=== PATIENT | female | born 1950 | race Caucasian/White ===

== ENCOUNTER → 2020-07-23 12:06 | Outpatient (CLI) | payer OTHER, SELFPAY ==
--- NOTE | ~2020-07-23 | DEXA_ITS ---
Bone Density Report Name: Loren Nevarez Age: 70 Sex: Female Ethnicity: White Date of : 1950 Indication: postmenopausal; screening for osteoporosis; height loss; hysterectomy; Referring Provider: ELLYN ANTHONY Study: Bone densitometry was performed. Exam Date: July 23, 2020 Accession number: [id number] Bone Density: Region BMD T-score Z-score Classification AP Spine (L1-L4) 0.987 -0.5 1.5 Normal Femoral Neck (Left) 0.765 -0.8 0.9 Normal Total Hip (Left) 0.910 -0.3 1.2 Normal Femoral Neck (Right) 0.788 -0.6 1.2 Normal Total Hip (Right) 0.925 -0.1 1.3 Normal Total Hip Mean 0.918 -0.2 1.3 Normal World Health Organization criteria for BMD impression classify patients as: Normal (T-score at or above -1.0), Osteopenia (T-score between -1.0 and -2.5), or Osteoporosis (T-score at or below -2.5). 10-year Fracture Risk: FRAX not reported because: All T-scores for Spine Total, Hip Total, Femoral Neck at or above -1.0 Clinical Information Provided by Patient: Has the following medical conditions: Hysterectomy Patient maximum height was 62.5 Menopause Age: 30 No regular weight bearing exercise Does not regularly consume dairy products Drinks caffeinated beverages Onset of menses at age 15 Number of children 3 Impression: The patient has normal bone mass. Discussion: BONE DENSITY IS ABOVE THE MINIMUM DESIRABLE LEVEL AT ALL SKELETAL SITES TESTED. This patient?s bone mineral density is above the minimum desirable level (T-score -1.0 or better) at all sites measured. The patient should follow a healthful lifestyle (good nutrition with adequate calcium and vitamin D, and appropriate weight-bearing exercise). Follow-Up: Consider repeating this study in 5 years or sooner if there is some new clinical indication. Reported by: RYAN on 07/23/2020 12:29:00 PM. Reviewed, dictated and finalized at location AGladys MACIAS
== END ==
PROVIDERS: PCP Family Medicine; Visit Provider Physician Assistant
DX: N95.8 Other specified menopausal and perimenopausal disorders (principal); Z78.0 Asymptomatic menopausal state
CPT/HCPCS: 77080

== ENCOUNTER → 2020-09-08 12:42 | Outpatient (CLI) | payer OTHER, SELFPAY ==
--- NOTE | ~2020-09-08 | MM_ITS ---
EXAMINATION: MM screening wing BI w gavin HISTORY: Screening TECHNIQUE: Craniocaudal and mediolateral oblique 3-D tomosynthesis images were obtained and synthetic 2-D images were generated. CAD analysis was submitted and interpreted. COMPARISON: 10/13/2016 BREAST PARENCHYMAL COMPOSITION: There are scattered areas of fibroglandular density. FINDINGS: There is no evidence of suspicious mass, calcification, or architectural distortion to sugg est malignancy in either breast. There has been no suspicious interval change. IMPRESSION: 1. No mammographic evidence of malignancy. 2. Recommend routine screening mammography in one year. BI-RADS Category 1: Negative Reviewed, dictated and finalized at location A.
== END ==
PROVIDERS: PCP Physician Assistant; Visit Provider Physician Assistant
DX: Z12.31 Encounter for screening mammogram for malignant neoplasm of breast (principal)
CPT/HCPCS: 77063; 77067

== ENCOUNTER → 2020-11-20 11:38 | Outpatient (CLI) | payer OTHER, SELFPAY ==
--- NOTE | ~2020-11-20 | US_ITS ---
EXAMINATION: US abdomen complete DATE: 11/20/2020 11:59 INDICATION: Right upper quadrant and epigastric abdominal pain. TECHNIQUE: Multiple grayscale and Doppler ultrasound images of the abdomen were obtained. COMPARISON: None FINDINGS: Inferior vena cava is normal. Abdominal aorta is normal in caliber and demonstrates atheros clerosis. The visualized portions of the head and body of the pancreas are normal. There is diffuse h epatic steatosis. No liver surface nodularity. There is normal flow in main portal vein. The gallblad sveta is normal in size and contains gallstones. No gallbladder wall thickening or sonographic Guajardo s ign. The common duct is normal and measures 6 mm. The kidneys are normal in size. The spleen is kala l in size. IMPRESSION: 1. Cholelithiasis. No evidence of acute cholecystitis. 2. Diffuse hepatic steatosis. Reviewed, dictated and finalized at location A.
== END ==
PROVIDERS: PCP Family Medicine; Visit Provider Nurse Practitioner Family
DX: K80.20 Calculus of gallbladder without cholecystitis without obstruction (principal); K76.0 Fatty (change of) liver, not elsewhere classified
CPT/HCPCS: 76700

== ENCOUNTER 2022-08-11 15:00 | Outpatient (CLI) | payer OTHER, SELFPAY ==
--- NOTE | ~2022-08-11 | MM_ITS ---
EXAMINATION: MM screening wing BI w gavin HISTORY: Screening mammogram TECHNIQUE: Craniocaudal and mediolateral oblique 3-D tomosynthesis images were obtained and synthetic 2-D images were generated. CAD analysis was submitted and interpreted. COMPARISON: 09/08/2020, 10/13/2016, 05/18/2014 bilateral screening mammogram examinations BREAST PARENCHYMAL COMPOSITION: There are scattered areas of fibroglandular density. FINDINGS: There is no evidence of suspicious mass, calcification, or architectural distortion to sugg est malignancy in either breast. There has been no suspicious interval change. IMPRESSION: 1. No mammographic evidence of malignancy. 2. Recommend routine screening mammography in one year. BI-RADS Category 1: Negative Reviewed, dictated and finalized at location A.
== END 2022-08-11 15:01 | disposition home or self-care (01) ==
LOC: ANHIMG 15:02
PROVIDERS: PCP Family Medicine; Visit Provider Physician Assistant
DX: Z12.31 Encounter for screening mammogram for malignant neoplasm of breast (principal)
CPT/HCPCS: 77063; 77067

== ENCOUNTER 2024-01-25 12:09 | Outpatient (CLI) | payer OTHER, SELFPAY ==
--- NOTE | ~2024-01-25 | MM_ITS ---
EXAMINATION: MM screening wing BI w gavin HISTORY: Screening mammogram TECHNIQUE: Craniocaudal and mediolateral oblique 3-D tomosynthesis images were obtained and synthetic 2-D images were generated. CAD analysis was submitted and interpreted. COMPARISON: 08/11/2022, 09/08/2020 BREAST PARENCHYMAL COMPOSITION:Not Dense. There are scattered areas of fibroglandular density. FINDINGS: No suspicious mass, calcification, or architectural distortion are identified in either krista ast to suggest malignancy. There has been no suspicious interval change. IMPRESSION: No mammographic evidence of malignancy. Recommend routine screening mammography in one year. BI-RADS Category 1: Negative Reviewed, dictated and finalized at location .
== END 2024-01-25 12:10 | disposition home or self-care (01) ==
LOC: MICIMG 12:10
PROVIDERS: PCP Family Medicine; Visit Provider Family Medicine
DX: Z12.31 Encounter for screening mammogram for malignant neoplasm of breast (principal)
CPT/HCPCS: 77063; 77067

== ENCOUNTER 2024-08-09 16:40 | Emergency (ER) | payer OTHER, SELFPAY ==
[2024-08-09] VITALS (7 sets, daily range): BP systolic 119–159; BP diastolic 60–79; PULSE 69–82; RESP 11–18; TEMP 36.5–36.6; O2SAT 97–100
--- NOTE | ~2024-08-09 | XR_ITS ---
EXAM: XR shoulder LT min 2V DATE: 08/09/2024 18:09 HISTORY: reduction . COMPARISON: Same date at 5:25 PM. FINDINGS/IMPRESSION: Successful interval reduction of the left shoulder. Redemonstration of the humer al head fracture involving the greater tuberosity, mild residual displacement. Reviewed, dictated and finalized at location K.
--- NOTE | ~2024-08-09 | XR_ITS ---
EXAM: XR shoulder LT min 2V DATE: 08/09/2024 17:29 HISTORY: fall . COMPARISON: None available. FINDINGS: Normal mineralization. The humeral head is dislocated anteriorly and inferiorly. Fracture of the humeral head, involving the majority of the greater tuberosity, approximately 6 mm distraction . No lytic or blastic lesion. The AC joint is aligned. No erosion or periosteal change. Soft tissues within normal limits. IMPRESSION: Anteroinferior left shoulder dislocation, with fracture of the humeral head involving the greater tuberosity. Reviewed, dictated and finalized at location K. IMPRESSION: Anteroinferior left shoulder dislocation, with fracture of the dino ral head involving the greater tuberosity.
--- NOTE | 2024-08-09 17:37 | ED_ITS ---
HPI - Extremity Injury (Upper) General Chief Complaint: Extremity Injury, Upper <Joanna Grover APRN - Last Filed: 08/09/24 19:14> Stated Complaint: fall - left arm deformity <Joanna Grover APRN - Last Filed: 08/09/24 19:14> Time Seen by Provider: 08/09/24 17:01 <Joanna Grover APRN - Last Filed: 08/09/24 19:14> History of Present Illness HPI narrative: Patient is a 74-year-old female who presents to the ER with complaints of left shoulder pain. She reports she was walking through her kitchen and tripped over her own feet. Patient landed on her left shoulder on the ground. She endorses decreased range of motion and pain with any man ipulation. Patient endorses history of a ?heart murmur but denies any other medical history. She denies any chest pain, shortness of breath, back pain, decreased range of motion in her elbow or wrist. <Joanna Grover APRN - Last Filed: 08/09/24 19:14> Related Data Allergies/Adverse Reactions: Allergies Allergy/AdvReac Type Severity Reaction Status Date / Time No Known Allergies Allergy Verified 07/02/24 11:05 <Joanna Grover APRN - Last Filed: 08/09/24 19:14> Review of Systems Review of Systems: All systems reviewed & are unremarkable except as noted in HPI and below <Joanna Grover APRN - Last Filed: 08/09/24 19:14> REPLACED BY [facility] Past Medical History Medical History: Medical History Anxiety Depression HLD (hyperlipidemia) HTN (hypertension) Diabetes <Joanna Grover APRN - Last Filed: 08/09/24 19:14> Surgical History Surgical History: Surgical History History of hysterectomy History of tubal ligation <Joanna Grover APRN - Last Filed: 08/09/24 19:14> Family History Family History: Family History Father Malignant neoplasm of prostate Diabetes mellitus Heart disease Hypertension Sibling Hypertension Mother Parkinson disease Alzheimer disease <Joanna Grover APRN - Last Filed: 08/09/24 19:14> Social History Social History: Social History Smoking status: Never smoker Second hand tobacco smoke exposure: No Alcohol intake: former Alcohol use details: rare Substance use: never Substance use type: does not use Do You Feel Safe in your Home?: Yes Lack of Transportation: No Lack of Food: Never True Current Housing: I Have Housing Concerned About Future Housing: No Difficulty Paying Gas/Electric Bills: No Difficulty Paying for Meds: No Currently Unemployed: YES Education: Don't Know Difficulty w/ Childcare or Family Care: No Living arrangements: with family Occupation/Education: retired Gender identity (if verbalized by the patient): Female Sexual Orientation (if Verbalized by the Patient): Straight or Heterosexual <Joanna Grover APRN - Last Filed: 08/09/24 19:14> Exam Narrative: GENERAL: Well appearing, well-nourished, non-toxic, in mild distress d/t pain. HEAD: Normocephalic, atraumatic. NECK: Supple. No adenopathy, no masses. RESPIRATORY: Airway patent, respirations nonlabored. Clear to auscultation bilaterally, no rales, rhonchi, wheezing. CARDIOVASCULAR: Regular rate and rhythm without murmurs, rubs, or gallops. Peripheral pulses 2+ and equal bilaterally. ABDOMINAL: Soft, nontender, nondistended, no hepatosplenomegaly. Normoactive BS. MUSCULOSKELETAL: Moves all extremities. Strength/ROM intact without gross deformities in all extremities but her L shoulder. Pt's L shoulder is visibly displaced with limited ROM. SKIN: Warm, dry, normal color. No rashes. NEURO: A&O X3. Speech clear. Cranial nerves II-XII intact. No ataxic movements. PSYCHIATRIC: Appropriate mood and affect. Normal interaction. <Joanna Grover APRN - Last Filed: 08/09/24 19:14> Course METAL BUGGY OPERATOR/PA Physician Supervision This visit was performed by both a physician and an APC. I performed all aspects of the MDM as documented. <Cristóbal Chawla MD - Last Filed: 08/09/24 22:12> Vital Signs Vital signs: Vital Signs Temperature 97.9 F 08/09/24 17:00 Pulse Rate 69 08/09/24 17:00 Respiratory Rate 18 08/09/24 17:00 Blood Pressure 159/79 H 08/09/24 17:00 Pulse Oximetry 97 08/09/24 17:00 Oxygen Delivery Room Air 08/09/24 17:00 Temperature 97.7 F 08/09/24 18:01 Pulse Rate 69 08/09/24 19:16 Respiratory Rate 12 08/09/24 19:16 Blood Pressure 119/60 08/09/24 19:16 Pulse Oximetry 98 08/09/24 19:16 Oxygen Delivery Room Air 08/09/24 17:00 <Joanna Grover APRN - Last Filed: 08/09/24 19:14> Vital Signs Temperature 97.9 F 08/09/24 17:00 Pulse Rate 69 08/09/24 17:00 Respiratory Rate 18 08/09/24 17:00 Blood Pressure 159/79 H 08/09/24 17:00 Pulse Oximetry 97 08/09/24 17:00 Oxygen Delivery Room Air 08/09/24 17:00 Temperature 97.7 F 08/09/24 18:01 Pulse Rate 69 08/09/24 19:16 Respiratory Rate 12 08/09/24 19:16 Blood Pressure 119/60 08/09/24 19:16 Pulse Oximetry 98 08/09/24 19:16 Oxygen Delivery Room Air 08/09/24 17:00 <Cristóbal Chawla MD - Last Filed: 08/09/24 22:12> Procedures Orthopedic Joint Reduction Joint #1: Orthopedic Joint Reduction Date: 08/09/24 <Cristóbal Chawla MD - Last Filed: 08/09/24 22:12> Orthopedic Joint Reduction Time: 17:54 <Cristóbal Chawla MD - Last Filed: 08/09/24 22:12> Time Out Performed: No <Cristóbal Chawla MD - Last Filed: 08/09/24 22:12> Side: left <Cristóbal Chawla MD - Last Filed: 08/09/24 22:12> Joint Reduction Location: shoulder <Cristóbal Chawla MD - Last Filed: 08/09/24 22:12> Analgesia: other (Morphine) <Cristóbal Chawla MD - Last Filed: 08/09/24 22:12> Pre-Procedure Neuro Vascular Exam: normal <Cristóbal Chawla MD - Last Filed: 08/09/24 22:12> Shoulder Technique Used (if applicable): external rotation <Cristóbal Chawla MD - Last Filed: 08/09/24 22:12> Post-reduction neuro exam: intact <Cristóbal Chawla MD - Last Filed: 08/09/24 22:12> Post-reduction vascular: intact <Cristóbal Chawla MD - Last Filed: 08/09/24 22:12> Post Reduction X-Ray Obtained: Yes <Cristóbal Chawla MD - Last Filed: 08/09/24 22:12> Post Reduction X-Ray Results: reduced <Cristóbal Chawla MD - Last Filed: 08/09/24 22:12> Splint Applied: Yes <Cristóbal Chawla MD - Last Filed: 08/09/24 22:12> Patient Tolerated Procedure: well <Cristóbal Chawla MD - Last Filed: 08/09/24 22:12> MDM - Extremity Injury (Upper) MDM Narrative Medical decision making narrative: Patient is a 74-year-old female who presents to the ER with complaints of left shoulder pain. She reports she was walking through her kitchen and tripped over her own feet. Patient landed on her left shoulder on the ground. She endorses decreased range of motion and pain with any manipulation. Patient endorses history of a ?heart murmur but denies any other medical history. She denies any chest pain, shortness of breath, back pain, decreased range of motion in her elbow or wrist. Labs Ordered: None necessary Imaging Ordered:L shoulder x-ray x2 Medications Ordered: Morphine 4 mg IV, Toradol 15 mg IV Results: First L shoulder x-ray indicates Anteroinferior left shoulder di slocation, with fracture of the humeral head involving the greater tuberosity. Repeat left shoulder x-ray following reduction indicates successful interval reduction of the left shoulder. Redemonstration of the humeral head fracture involving the greater tuberosity, mild residual displacement. Diagnosis: L shoulder dislocation and fracture Consults: orthopedics (outpatient) Patient Education/Shared MDM: Results shared with patient. She endorses improvement following medication administration. Patient strongly advised to call orthopedics tomorrow and follow-up with her PCP as soon as possible. She will be discharged home with a prescription for [place]. Strict return precautions provided. Patient verbalized understanding and is in agreement with plan. Vital signs stable at time of discharge. All questions answered. <Joanna Grover APRN - Last Filed: 08/09/24 19:14> Differential Diagnosis Differential diagnosis: Likely dislocation of shoulder, fracture of humerus, fracture of clavicle and other (Left shoulder fracture) <Joanna Grover APRN - Last Filed: 08/09/24 19:14> Imaging Data Attestation: I personally reviewed and interpreted this imaging study as follows: <Joanna Grover APRN - Last Filed: 08/09/24 19:14> Radiologist's impression: Impressions Shoulder X-Ray 08/09/24 17:41 IMPRESSION: Anteroinferior left shoulder dislocation, with fracture of the humeral head involving the greater tuberosity. <Joanna Grover APRN - Last Filed: 08/09/24 19:14> Discharge Plan Discharge Clinical Impression: Fracture of humerus, Dislocation of shoulder region <Joanna Grover APRN - Last Filed: 08/09/24 19:14> Patient Disposition: Home, Self-Care <Joanna Grover APRN - Last Filed: 08/09/24 19:14> Condition: Stable <Joanna Grover APRN - Last Filed: 08/09/24 19:14> Instructions: Antibiotic Form, Shoulder Dislocation (ED), How to Use a Sling (ED) <Joanna Grover APRN - Last Filed: 08/09/24 19:14> Additional Instructions: Please return to the ER with any worsening symptoms. Follow-up with Orthopedic surgery and your primary care provider as soon as possible. Take all medications as prescribed, including regularly scheduled medications. <Joanna Grover APRN - Last Filed: 08/09/24 19:14> Patient Language: Estonian <Joanna Grover APRN - Last Filed: 08/09/24 19:14> Prescriptions: New hydrocodone-acetaminophen 5-325 mg tablet 1 tablet PO Q4H PRN (Reason: pain) Qty: 14 0RF No Action aspirin [Adult Aspirin Regimen] 81 mg tablet,delayed release (DR/EC) 81 mg PO DAILY Qty: 90 0RF atorvastatin 20 mg tablet See Rx Instructions .ROUTE .COMPLEX Qty: 90 2RF Dose Instruction: TAKE 1 TABLET BY MOUTH EVERY DAY Rx Instructions: TAKE 1 TABLET BY MOUTH EVERY DAY escitalopram oxalate 20 mg tablet See Rx Instructions .ROUTE .COMPLEX Qty: 90 2RF Dose Instruction: TAKE 1 TABLET BY MOUTH EVERY DAY Rx Instructions: TAKE 1 TABLET BY MOUTH EVERY DAY fenofibrate 160 mg tablet See Rx Instructions .ROUTE .COMPLEX Qty: 90 2RF Dose Instruction: TAKE 1 TABLET BY MOUTH EVERY DAY Rx Instructions: TAKE 1 TABLET BY MOUTH EVERY DAY losartan-hydrochlorothiazide 100-25 mg tablet 1 tablet PO DAILY Qty: 90 2RF metformin 500 mg tablet extended release 24 hr 500 mg PO DAILY Qty: 90 2RF bupropion HCl 150 mg tablet extended release 24 hr See Rx Instructions .ROUTE .COMPLEX Qty: 90 2RF Dose Instruction: TAKE 1 TABLET BY MOUTH EVERY DAY IN THE MORNING Rx Instructions: TAKE 1 TABLET BY MOUTH EVERY DAY IN THE MORNING buspirone 5 mg tablet 5 mg PO BID PRN (Reason: anxiety) Qty: 180 2RF <Joanna Grover APRN - Last Filed: 08/09/24 19:14> Follow-up/Referrals: Jonny Reza MD [Primary Care Provider] - Chun Curry MD [Physician] - (orthopedics) <Joanna Grover APRN - Last Filed: 08/09/24 19:14> Time of Disposition: 19:12 <Joanna Grover APRN - Last Filed: 08/09/24 19:14> 19:12 <Cristóbal Chawla MD - Last Filed: 08/09/24 22:12>
[2024-08-09] MEDS: KETOROLAC 15 MG/ML VIAL (*BKC) IV PUSH (17:44)
[2024-08-09] MEDS: MORPHINE SULFATE (*CRX) 4 MG/ML INJ IV PUSH (17:45)
--- OUTSIDE RECORDS SUMMARY | 2024-08-09 17:48 | XMS_ITS | Continuity of Care Document ---
Author Organization [facility] Address [address] [place] [address] [address] [place] [address] Phone Care Team Providers Care Neon Sign Maker Name Role Phone Kathie Perez Unavailable Unavailable Procedures Procedure Date Office/outpatient Visit, [facility] Advance Directives Directive Yes / No Effective Date File Name No Information Encounters Encounter Description Practice Location Reason(s) For Visit Diagnoses Date Provider Providers Copied on Encounter Office/outpat ient Visit, [facility], [address] [place] [address] [address], [place], [place], [id number], [place] tel:[phone] [facility] No Information 0 Ana V[facility]quez. [address] , [address], [place], [address], [place]. tel:[phone] Family History Family Member Type Diagnosis Age At Onset No Information Payers Payer name Insurance type Covered constitution party ID Authoriza tihomar(s) [employer] CI [id number] Social History Type Description Quantity Date Captured Comments Sex Female Smoking Status No Information Chief Complaint And Reason For Visit No Information Reason For Referral Reason For Referral No Information History Of Present Illness Encounter Date Complaint History Of Prese nt Illness No Information Functional Status Date Functional Assessmen t No Information Instructions Date Instruction Additional Infor mation No Information Assessments Type Assessment Date No Information Patient Care Teams Name Effective Dates (start - stop) Status Members No Information
--- OUTSIDE RECORDS SUMMARY | 2024-08-09 17:48 | XMS_ITS | Referral Summary ---
Author Organization [facility] Physician [facility] Building [address] [place] [phone] Care Team Providers Care Hand Painter Name Role Phone Jonny Reza MD Primary Care Provider Allergies No known active allergies Medications busPIRone (BUSPAR) 5 mg tablet TAKE 1 TABLET BY MOUTH TWICE A DAY NEEDED FOR ANXIETY 11/18/2020 Active atorvastatin (LIPITOR) 20 mg tablet Take 1 tablet (20 mg total) by mouth daily 09/18/2020 Active escitalopram (LEXAPRO) 20 mg tablet Take 1 tablet (20 mg total) by mouth daily 09/18/2020 Active fenofibrate (TRIGLIDE) 160 mg tablet Take 1 tablet (160 mg total) by mouth daily 09/18/2020 Active metFORMIN XR (GLUCOPHAGE XR) 500 mg 24 hr tablet Take 4 tablets (2,000 mg total) by mouth daily 11/24/2020 Active aspirin 81 mg enteric coated tabletIndicatio ns:Abnormal electrocardiogr am,Abnormal stress test,LBBB (left bundle branch block) Take 1 tablet (81 mg total) by mouth daily 30 tablet 11 12/01/2020 Active losartan-hydroc hlorothiazide (HYZAAR) 100-25 mg per tablet Take 1 tablet by mouth daily 09/09/2022 Active buPROPion XL (WELLBUTRIN XL) 150 mg 24 hr tablet Take 1 tablet (150 mg total) by mouth every morning 11/05/2022 Active Active Problems Problem Noted Date Diagnosed Date Abnormal stress test 12/01/2020 LBBB (left bundle branch block) 12/01/2020 Essential hypertension 12/01/2020 Mixed hyperlipidemia 12/01/2020 Social History Tobacco Use Types Packs/Day Years Used Date Smoking Tobacco: Never Smokeless Tobacco: Never Personal Safety Answer Date Recorded Getting School Help Needed Not on file 07/09 Comments Unknown Sex and Gender Information Value Date Recorded Sex Assigned at Not on file 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 Gender Identity Not on file Sexual Orientation Not on file Last Filed Vital Signs Vital Sign Reading Time Taken Comments Blood Pressure 142/74 11/29/2022 9:54 AM CDT Pulse 70 11/29/2022 9:54 AM CDT Temperature - - Respiratory Rate - - Oxygen Saturation 97% 11/29/2022 9:54 AM CDT Inhaled Oxygen Concentration - - Weight 63.1 kg (139 lb 1.6 oz) 11/29/2022 9:54 A M CDT Height 158.8 cm (5' 2.5 ) 11/29/2022 9:54 AM CDT Body Mass Index 25.04 11/29/2022 9:54 AM CDT Plan of Treatment Not on file Insurance [facility] Care Teams Hand Painter Relationship Specialty Start Date End Date Jonny Reza MD [address] [facility] [address] [place] [address] PCP - General Family Medicine 11/18/20
--- OUTSIDE RECORDS SUMMARY | 2024-08-09 17:48 | XMS_ITS | Clinical Summary ---
Author Organization [facility] Physician Office Building [address] [place] [phone] Care Team Providers Care Soccer Referee Name Role Phone Jonny Reza MD Primary [...] 12/01/2020 Essential hypertension 12/01/2020 Mixed hyperlipidemia 12/01/2020 Surgical History Surgery Date Site/Laterality Comments HYSTERECTOMY TUBAL LIGATION Medical History Medical History Date Comments Anxiety and depression Diabetes mellitus (HCC) Hyperlipidemia Hypertension Family History Medical History Relation Name Comments Diabetes Father Heart disease Father Hypertension Father Malignant neoplasy of prostate Father Alzheimer's disease Mother Parkinson Disease Mother Relation Name Status Comments Father (Age 77) Mother (Age 70's) Social History Tobacco Use Types Packs/Day Years Used Date Smoking Tobacco: Never Smokeless Tobacco: Never Personal Safety Answer Date Recorded Getting School Help Needed Not on file 07/09 Comments Unknown Sex and Gender Information Value Date Recorded Sex Assigned at Not on file 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 Gender Identity Not on file Sexual Orientation Not on file Obstetrics History Last Filed Vital Signs Vital Sign Reading [...] 11/29/2022 9:54 AM CDT Plan of Treatment Health Maintenance Due Date Last Done Comments Breast Cancer Screening-Mammogram 1950 Colon Cancer Screening-Colonoscopy 1950 Depression Screening 1950 Fall Risk Assessment 1950 Hepatitis C Screening 1950 Osteoporosis Screening-Bone Density Scan 1950 DTaP/Tdap/Td Vaccine (1 - Tdap) 02/12/1963 Hepatitis B Screening 02/12/1970 Pneumococcal vaccine 65+ (1 of 1 - PCV) 02/12/2002 Zoster Vaccine (1 of 2) 02/12/2002 Well Visit 65+ 02/12/2017 Covid-19 Vaccine (4 - season) 2024 03/04/2021, 07/27/2020, 07/06/2020 Influenza Vaccine (#1) 2024 03/04/2021 Insurance [facility] Care Teams Soccer Referee Relationship Specialty Start Date End Date Jonny Reza MD [address] [facility] [address] [place] [address] PCP - General Family Medicine 11/18/20
--- NOTE | 2024-08-09 18:05 | PC.NURSE ---
ERP reduce left shoulder dislocation at bedside without the use of sedation
[2024-08-09] MEDS: HYDROcodone/acetaminophen (*CRX) 5-325 MG TABLET 1 TAB PO (19:26)
== END 2024-08-09 19:40 | disposition home or self-care (01) ==
PROVIDERS: Emergency Provider Registered Nurse; PCP Family Medicine
DX: S42.302A Unspecified fracture of shaft of humerus, left arm, initial encounter for closed fracture (principal); I10 Essential (primary) hypertension; E78.5 Hyperlipidemia, unspecified; E11.9 Type 2 diabetes mellitus without complications; W01.0XXA Fall on same level from slipping, tripping and stumbling without subsequent striking against object, initial encounter; Y92.000 Kitchen of unspecified non-institutional (private) residence as the place of occurrence of the external cause
CPT/HCPCS: 23665; 73030; 96374; 96375; 99285; A9270; J1885; J2270

== ENCOUNTER 2025-01-28 11:01 | Outpatient (CLI) | payer OTHER, SELFPAY ==
--- NOTE | ~2025-01-28 | MM_ITS ---
EXAMINATION: MM screening wing BI w gavin HISTORY: Screening TECHNIQUE: Craniocaudal and mediolateral oblique 3-D tomosynthesis images were obtained and synthetic 2-D images were generated. CAD analysis was submitted and interpreted. COMPARISON: Comparison to multiple prior studies sequentially, with oldest reviewed study dated , 05/18/2014 BREAST PARENCHYMAL COMPOSITION: There are scattered areas of fibroglandular density. FINDINGS: There is no evidence of suspicious mass, calcification, or architectural distortion to suggest malignancy in either breast. IMPRESSION: 1. No mammographic evidence of malignancy. 2. Recommend routine screening mammography in one year. BI-RADS Category 1: Negative Reviewed, dictated and finalized at location B.
== END 2025-01-28 11:02 | disposition home or self-care (01) ==
LOC: MICIMG 11:02
PROVIDERS: PCP Family Medicine; Visit Provider Family Medicine
DX: Z12.31 Encounter for screening mammogram for malignant neoplasm of breast (principal)
CPT/HCPCS: 77063; 77067